=== PATIENT | male | born 1965 | race Caucasian/White ===

== ENCOUNTER 2018-04-09 16:47 | Outpatient (REF) | payer BC, SELFPAY ==
[2018-04-09 18:28] LABS: HGB 15.6 g/dL (13.5-17.5)
[2018-04-09 18:53] LABS: TSH (W/Ref FT4) 1.91 uIU/mL (0.358-3.74)
[2018-04-12 16:22] LABS: Testosterone, Free 7.51 ng/dL (4.06-15.6); Testosterone, Total 289 ng/dL (240-950)
== END 2018-04-09 17:07 ==
LOC: NCHCN 16:47
PROVIDERS: Referring Provider Family Medicine; Visit Provider Family Medicine
DX: R53.83 Other fatigue (principal)
CPT/HCPCS: 84402; 84403; 83735; 84443; 85014; 85018

== ENCOUNTER 2018-05-21 16:58 | Outpatient (REF) | payer BC, SELFPAY ==
[2018-05-23 15:13] LABS: Chlamydia Result Negative; GC Result Negative; Specimen Description URINE
== END 2018-05-21 17:18 ==
LOC: NCHCN 16:58
PROVIDERS: PCP Family Medicine; Visit Provider Family Medicine
DX: Z20.9 Contact with and (suspected) exposure to unspecified communicable disease (principal); Z11.3 Encounter for screening for infections with a predominantly sexual mode of transmission
CPT/HCPCS: 87491; 87591

== ENCOUNTER 2018-05-22 09:45 | Outpatient (CLI) | payer BC, SELFPAY ==
[2018-05-23 10:55] LABS: Syphilis Serology (RPR) Negative (Negative)
[2018-05-23 11:39] LABS: HIV-1/2 Ag & Ab Screen Negative (NEGAT); Hepatitis B Surface Ag Negative (NEGAT)
== END 2018-05-22 10:05 ==
PROVIDERS: PCP Family Medicine; Visit Provider Family Medicine
DX: Z20.9 Contact with and (suspected) exposure to unspecified communicable disease (principal); Z11.59 Encounter for screening for other viral diseases; Z11.4 Encounter for screening for human immunodeficiency virus [HIV]
CPT/HCPCS: 36415; 87340; 87389; 86592

== ENCOUNTER 2018-06-27 08:54 | Outpatient (REF) | payer BC, SELFPAY ==
[2018-06-27 13:51] LABS: Cholesterol 213 mg/dL (50-200); HDL Cholesterol 53 mg/dL (40-60); LDL CHOLESTEROL 137 mg/dL (<100); Triglyceride 102 mg/dL (30-150)
== END 2018-06-27 09:14 ==
LOC: NCHCN 08:54
PROVIDERS: PCP Family Medicine; Visit Provider Family Medicine
DX: Z00.00 Encounter for general adult medical examination without abnormal findings (principal); E66.9 Obesity, unspecified
CPT/HCPCS: 80061; 83721

== ENCOUNTER 2019-02-24 16:33 | Outpatient (CLI) | payer BC, SELFPAY ==
--- NOTE | 2019-02-24 12:12 | DI.RAD_ITS ---
SYMPTOMS/DIAGNOSIS: SHOULDER PAIN, M25.519 LEFT SHOULDER: Five views were obtained. There are moderate hypertrophic degenerative changes of the acromioclavicular and glenohumeral joints. The cartilaginous joint space of the glenohumeral joint appears fairly well maintained. No other significant bony or soft tissue abnormality is seen.
== END 2019-02-24 16:53 ==
PROVIDERS: PCP Family Medicine; Visit Provider Family Medicine
DX: M25.512 Pain in left shoulder (principal); M13.812 Other specified arthritis, left shoulder
CPT/HCPCS: 73030

== ENCOUNTER → 2020-08-13 01:12 | Outpatient (CLI) | payer BC, SELFPAY ==
[2020-08-18 14:20] LABS: Testosterone, Total 440 ng/dL (240-950)
[2020-08-18 14:42] LABS: Estradiol, Mass Spectrometry 33 pg/mL (10-40); Estrone 53 pg/mL (10-60)
== END ==
PROVIDERS: PCP Family Medicine; Visit Provider Family Medicine
DX: R53.83 Other fatigue (principal); N52.9 Male erectile dysfunction, unspecified
CPT/HCPCS: 36415; 84403; 82670; 82679

== ENCOUNTER 2021-07-13 08:04 | Emergency (ER) | payer OTHER, SELFPAY ==
[2021-07-13 08:11] VITALS: BP 162/111; PULSE 103; RESP 16; TEMP 36.1; O2SAT 97
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
[2021-07-13] MEDS: Acetaminophen 325 MG TAB 650 MG PO (09:08)
[2021-07-13 09:34] VITALS: BP 158/92; PULSE 91; TEMP 36.8; O2SAT 98
--- NOTE | 2021-07-13 17:54 | NUR.NOTE ---
Nursing Note:Patient called asking for prescription to be sent to [facility] in [place], the [facility] in [facility] is closed. Paula Martinez, did this. Patient notified. Lilly miller
== END 2021-07-13 09:42 | disposition home or self-care (01) ==
PROVIDERS: Emergency Provider Physician Assistant; PCP Family Medicine
DX: M54.2 Cervicalgia (principal); V40.5XXA Car driver injured in collision with pedestrian or animal in traffic accident, initial encounter
CPT/HCPCS: 99284; 72125; 99283

== ENCOUNTER 2022-02-10 12:12 | Emergency (ER) | payer BC, SELFPAY ==
[2022-02-10 12:41] VITALS: BP 132/97; PULSE 99; RESP 14; TEMP 36.6; O2SAT 98
--- NOTE | 2022-02-10 12:45 | RT.EKG_ITS ---
APPROVED REPORT Exam: Resting ECG Reason for Exam: chest congestion Patient Location: E HR:86 bpm ECG Measurements Heart Rate 86 AXIS OR 148 P 33 QRSd 85 QRS 21 QT 367 T 51 QTc 440 Conclusion Sinus rhythm...normal P axis, V-rate 60- 99 sinus rhythm, normal axis, normal intervals, non ischemic
--- NOTE | 2022-02-10 12:50 | DI.RAD_ITS ---
Exam(s) XR PORTABLE CHEST AP EXAM: XR PORTABLE CHEST AP CLINICAL HISTORY: covid, chest congestion TECHNIQUE: 2D digital imaging was performed of the chest. One image was obtained. An AP view was ob tained. COMPARISON: CR CHEST 2 VIEWS PA,LAT from 06/14/2016 FINDINGS: MEDIASTINUM: Normal. HEART: Normal. PULMONARY VASCULATURE: Normal. LUNGS: Clear. PLEURAL SPACE: No pleural effusion or pneumothorax. BONE:Within normal limits for the patient's age. OTHER FINDINGS:Normal. IMPRESSION: No acute pulmonary findings. DATA REPOSITORY: RADIATION DOSE DELIVERED:
--- NOTE | 2022-02-10 13:10 | ED.GENADUL_ITS ---
Discharge Plan Disposition Patient Disposition: HOME Condition: Improving Discharge Details Chief Complaint: GenMedical Clinical Impression: COVID-19 Primary Care Provider: Mark Michelle ED Provider: Joel Teixeira Home Meds and New Rx's Prescriptions: No Action lorazepam 0.5 MG tablet 0.5 mg PO 1-2 hs,1q8h prn Qty: 90 0RF lamotrigine [Lamictal] 150 mg tablet 150 mg PO DAILY PRN ibuprofen 600 mg tablet 600 mg PO TID PRN fluticasone propionate [Flovent HFA] 110 mcg/actuation HFA aerosol inhaler 1 puff inhalation BID multivitamin Tablet 1 tab PO DAILY albuterol sulfate [Ventolin HFA] 8 GM HFA aerosol inhaler 2 puff Inhalation PRN PRN fluticasone propionate [Flovent HFA] 10.6 GM HFA aerosol inhaler 10.6 g Inhalation vitamin B complex [B-Complex] 1 EACH tablet 1 tab PO DAILY Glucosamine Sulf-Chondroitin 1 EACH capsule 1 cap PO DAILY magnesium oxide 400 MG capsule 400 mg PO DAILY [place] 4 tab PO DAILY Thermoburn 2 tab PO DAILY Discharge Instructions Instructions: Viral Syndrome (ED) Additional Instructions: Please follow-up with your primary physician. Please return to the emergency part he develop any worsening symptoms such as chest pain shortness of breath or other abnormal symptoms. Care management will be reaching out and we will have [facility] human services reach out to help you seek outpatient services as needed. Medical Decision Making 56-year-old male history of psychogenic seizure, recently diagnosed with COVID presents with generalized fatigue chest congestion and lightheadedness. Has endorses that his seizure activity has increased. Patient is alert and oriented nontoxic no respiratory distress hemodynamically stable, ambulatory without assistance no focal neurologic deficits. Patient did have a convulsive episode during triage in which she was talking to us the entire time and said the word seizure this is brief in nature and involved contraction of his neck muscles and grimacing, no postictal phase patient was able to interact normally right after this event. Likely symptomatic COVID-19. Low suspicion for worsening neurologic process. Low suspicion for ACS PE or dehydration. Will treat symptomatically with analgesia and anti-inflammatory. Will obtain EKG and chest x-ray. Likely discharge home with home care instructions and return precautions 14: 26 patient resting comfortably no acute distress. EKG and x-ray clear. Patient endorses that he has close follow-up as an outpatient. Has been seen by neurology in the past who have cleared him from a neurologic standpoint with regards to seizure activity. Given home care instructions and return precautions given. His girlfriend will be called to pick him up. HPI General Date/Time Provider Initiated Documentation: 02/10/22 12:50 . HPI Narrative: 56-year-old male recently diagnosed with COVID-19 over the past 3 days, history of psychogenic seizure, presents referred in after phone conversation with primary care nursing staff, has been endorsing fatigue body aches and chest congestion over the past several days. Endorses that his psychogenic seizure frequency has increased. Denies syncope, or injuries. Has been taking medications as prescribed. Related Data Home Medications Medication Instructions Recorded Confirmed albuterol sulfate 90 mcg/actuation 2 puff inhalation PRN PRN 09/24/12 02/10/22 aerosol inhaler (Ventolin HFA) fluticasone propionate 44 10.6 g inhalation 02/14/13 09/06/15 mcg/actuation HFA aerosol inhaler (Flovent HFA) glucosamine sulfate dipotassium Cl 1 cap PO DAILY 09/06/15 02/10/22 500 mg-chondroitin 400 mg capsule (Glucosamine Sulfate 2 KCL-Chondroitin) magnesium oxide 400 mg PO DAILY 09/06/15 02/10/22 vitamin B complex (B-Complex 1 tab PO DAILY 09/06/15 02/10/22 tablet) lorazepam 0.5 mg tablet 0.5 mg PO 1-2 hs,1q8h prn ##90 06/18/17 02/10/22 [place] 4 tab PO DAILY 07/13/21 02/10/22 Thermoburn 2 tab PO DAILY 07/13/21 02/10/22 lamotrigine 150 mg tablet 150 mg PO DAILY PRN 08/03/21 02/10/22 (Lamictal) fluticasone propionate 110 1 puff inhalation BID 01/13/22 02/10/22 mcg/actuation HFA aerosol inhaler (Flovent HFA) ibuprofen 600 mg tablet 600 mg PO TID PRN 01/13/22 02/10/22 multivitamin 1 tab PO DAILY 01/13/22 02/10/22 Previous Rx's Medication Instructions Recorded lorazepam 0.5 mg tablet 0.5 mg PO 1-2 hs,1q8h prn ##90 06/18/17 Allergies Allergy/AdvReac Type Severity Reaction Status Date / Time acetaminophen [From Percocet] AdvReac Mild Nausea Verified 02/10/22 12:49 oxycodone [From Percocet] AdvReac Mild Nausea Verified 02/10/22 12:49 pollen extracts AdvReac Mild Headache Verified 02/10/22 12:49 General Stated Complaint: GenMedical CHICO: 3 Review of Systems Narrative: Review of Systems Constitutional: Fatigue Eyes: negative ENT: negative Cardiovascular: negative Respiratory: Chest congestion Gastrointestinal: negative : negative Musculoskeletal: Body aches Skin: negative Neurologic: negative Psych: negative PFSH All Active Problems (Updated 02/10/22 @ 14:30 by Joel Teixeira MD) COVID-19 (Acute) Erectile dysfunction (Acute) Cervicalgia (Acute) Medical History (Updated 02/10/22 @ 14:30 by Joel Teixeira MD) Allergic rhinitis Asthma Elevated blood pressure reading Generalized anxiety disorder GERD (gastroesophageal reflux disease) Headache Hemangioma Herpes zoster History of ETOH abuse Meniscus, medial, derangement Pseudoseizures Right rotator cuff tear Shoulder impingement syndrome Skin tag Tremor Surgical History (Updated 01/13/22 @ 13:04 by Teressa Coats RN) H/O arthroscopy of left knee H/O arthroscopy of right knee History of laryngoscopy Family History (Updated 01/13/22 @ 13:06 by Teressa Coats RN) Father Alcohol use disorder Heart disease Mother Cancer Social History Smoking/Tobacco Use Status: Former Tobacco Use Smoking risk assessment performed?: Yes Alcohol Intake: former Drug use: Never Do you feel safe at home: Yes Do you feel safe in your relationship?: Yes Exam Narrative Exam Narrative: Physical Examination General: alert, awake, cooperative, resting comfortably, no acute distress HEENT: normocephalic, atraumatic; PERRL, EOM intact, conjunctiva normal; no nasal discharge; moist mucous membranes, oral and pharyngeal mucosa normal, tolerating secretions Neck: supple, trachea midline; full ROM Chest: normal to inspection Respiratory: normal respiratory effort, speaking in full sentences, clear to auscultation, no wheezing, rales or rhonchi Cardiac: regular rate, regular rhythm, S1S2 intact, no murmurs rubs or gallops GI: abdomen soft, non-tender, non-distended; no palpable mass or hepatosplenomegaly Skin: no lesions, rashes or trauma appreciated Neuro: AAOx3, normal speech, moving all extremities Extremities: No peripheral edema, no signs of trauma Psych: Appropriate mood and affect Course Vital Signs Vital signs: Vital Signs Temperature 36.6 C 02/10/22 12:41 Pulse 99 H 02/10/22 12:41 Respiratory Rate 14 02/10/22 12:41 Blood Pressure 132/97 H 02/10/22 12:41 Pulse Oximetry 98 02/10/22 12:41 Temperature 36.6 C 02/10/22 12:41 Temperature Source Temporal Artery Scan 02/10/22 12:41 Pulse 99 H 02/10/22 12:41 Respiratory Rate 14 02/10/22 12:41 Respiratory Effort Non-Labored 02/10/22 12:52 Respiratory Depth Normal 02/10/22 12:52 Respiratory Pattern Normal 02/10/22 12:52 Blood Pressure 132/97 H 02/10/22 12:41 Blood Pressure Position Supine 02/10/22 12:41 Pulse Oximetry 98 02/10/22 12:41 Oxygen Delivery Method Room Air 02/10/22 12:41 Oxygen Flow Rate 0 02/10/22 12:41
[2022-02-10] MEDS: LORazepam 1 MG TAB PO (13:25)
[2022-02-10] MEDS: Dexamethasone 10 MG/ML VIAL IM (13:26)
[2022-02-10] MEDS: Ketorolac 15 MG/ML VIAL IM (13:26)
[2022-02-10 14:41] VITALS: BP 125/81; PULSE 90; RESP 18; TEMP 37; O2SAT 97
--- NOTE | 2022-02-10 17:47 | NUR.NOTE ---
Nursing Note: Pt info faxed to pcp for follow up [facility] for mental health & emotional support. Liza, ED
--- NOTE | 2022-02-13 12:01 | PDOC.ERCMACT ---
- If Service Date Differs Date of service: 02/13/22 Time of Service: 12:01 Care Management Activity Note Jg is seen in the ED for generalized fatigue, chest congestion and lightheadedness. At the request of ED provider, NEYDA coordinates a referral to [facility] to assist Jg in obtaining an appointment with a therapist for generalized anxiety disorder. He has BCBS for insurance.
== END 2022-02-10 18:03 | disposition home or self-care (01) ==
PROVIDERS: Emergency Provider Emergency Medicine; PCP Family Medicine
DX: U07.1 COVID-19 (principal); J45.909 Unspecified asthma, uncomplicated; Z79.51 Long term (current) use of inhaled steroids; Z87.891 Personal history of nicotine dependence
CPT/HCPCS: 93005; 96372; 99284; 71045; 93010; J1100; J1885

== ENCOUNTER 2022-04-21 15:12 | Outpatient (REF) | payer BC, SELFPAY ==
[2022-04-21 15:43] LABS: Abs Immature Grans 0.02 10^3/uL (0.0-0.06); Absolute Basophil Count 0.12 10^3/uL (0.0-0.2); Absolute Lymphocyte Count 2.51 10^3/uL (1.2-3.4); Absolute Monocyte Count 0.86 10^3/uL (0.1-0.8); Absolute Neutrophil Count 3.46 10^3/uL (1.2-6.7); Basophils % 1.7; ESR 17 mm/hr (0-20); Eosinophils % 2.8; HCT 46.3 % (40.0-50.0); HGB 15.8 g/dL (13.5-17.5); Immature Grans % 0.3; MCH 31.3 pg (27.0-33.0); MCHC 34.1 % (32.0-36.0); MCV 92 fL (80-95); MPV 9.6 fL (8.0-11.0); Neutrophils % 48.2; Platelet Count 325 10^3/uL (130-400); RBC 5.05 10^6/uL (4.36-5.78); RDW 13.1 % (11.8-14.1); RDW-SD 44.5 fL; WBC 7.17 10^3/uL (4.4-10.8)
[2022-04-21 17:14] LABS: Anion Gap 7.6 mmol/L (3-11); BUN 19 mg/dL (7-18); CO2 28.4 mmol/L (21.0-32.0); CREATININE 0.8 mg/dL (0.70-1.30); Calcium 8.8 mg/dL (8.5-10.1); Calculated LDL 115 mg/dL (<100); Chloride 105 mmol/L (98-107); Cholesterol 188 mg/dL (<200); Estimated GFR 103.87 (mL/min/1.73m2); Glucose 90 mg/dL (74-106); HDL Cholesterol 49 mg/dL (40-60); Potassium 4.3 mmol/L (3.5-5.1); Sodium 141 mmol/L (136-145); Triglyceride 120 mg/dL (<150)
== END 2022-04-21 15:13 | disposition home or self-care (01) ==
LOC: NCHCN 15:12
PROVIDERS: PCP Family Medicine; Visit Provider Family Medicine
DX: R03.0 Elevated blood-pressure reading, without diagnosis of hypertension (principal); H34.8120 Central retinal vein occlusion, left eye, with macular edema
CPT/HCPCS: 80048; 80061; 85652; 85025

== ENCOUNTER 2022-11-02 20:20 | Emergency (ER) | payer BC, SELFPAY ==
[2022-11-02 20:24] VITALS: BP 148/84; PULSE 96; RESP 18; TEMP 37.1; O2SAT 95
--- NOTE | 2022-11-02 20:34 | ED.GENADUL_ITS ---
Discharge Plan Disposition Patient Disposition: Home Discharge Details Clinical Impression: Insect bite Primary Care Provider: Mark Michelle ED Provider: Jj Bolden Home Meds and New Rx's Prescriptions: Continued lorazepam 0.5 MG tablet 0.5 mg PO 1-2 hs,1q8h prn Qty: 90 0RF lamotrigine [Lamictal] 150 mg tablet 150 mg PO DAILY PRN ibuprofen 600 mg tablet 600 mg PO TID PRN fluticasone propionate [Flovent HFA] 110 mcg/actuation HFA aerosol inhaler 1 puff inhalation BID multivitamin Tablet 1 tab PO DAILY albuterol sulfate [Ventolin HFA] 8 GM HFA aerosol inhaler 2 puff Inhalation PRN PRN fluticasone propionate [Flovent HFA] 10.6 GM HFA aerosol inhaler 10.6 g Inhalation vitamin B complex [B-Complex] 1 EACH tablet 1 tab PO DAILY Glucosamine Sulf-Chondroitin 1 EACH capsule 1 cap PO DAILY magnesium oxide 400 MG capsule 400 mg PO DAILY [place] 4 tab PO DAILY Thermoburn 2 tab PO DAILY Discharge Instructions Instructions: Insect Bite or Sting (ED) Additional Instructions: Based on physical exam it is unclear if you were bitten by a tick or another insect. We have given you a prophylactic dose that reduces the chance of Lyme disease if this was an attached or engorged tick. Otherwise if area starts to become itchy you may use [id number] Benadryl cream or pills. Watch the area for signs of infection and return immediately if these occur otherwise if you have any new or significant worsening of your condition, difficulty breathing or swallowing or any other concerns return to the emergency department for reassessment. Otherwise follow-up with primary care provider as needed. Referrals: Mark Michelle [Primary Care Provider] - Medical Decision Making Patient reports that today he noticed some ticks crawling on him and he removed them. Then later in the evening he felt the back of his neck and and felt like there was a tick that was attached or embedded and flung it off. He did not see it but did noticed some bleeding after that was removed. Patient denies all other symptoms. Physical exam shows a area consistent with tick or insect bite to the posterior neck. Exam is otherwise unremarkable. Given potential for embedded tick and patient stating unknown time of attachment we will give patient single dose of doxycycline and have patient otherwise monitor symptoms. After discussion of diagnosis and plan of care patient has no further needs, questions, or concerns and states clear understanding to return to the emergency department for any worsening symptoms. This documentation was generated using [employer] dictation system, please disregard any oddities of phrase or misspellings. HPI General Mode of arrival: ambulatory . Date/Time Provider Initiated Documentation: 11/02/22 20:34 . Limitations to Documentation: no limitations . Information obtained by: patient and RN notes reviewed . History of Present Illness 57 year old M presents to the emergency department with the chief complaint of tick, Patient started experiencing this unknown Patient notes no other symptoms.. Patient did receive the following treatments prior to arrival, none Related Data Home Medications Medication Instructions Recorded Confirmed albuterol sulfate 90 mcg/actuation 2 puff inhalation PRN PRN 09/24/12 02/10/22 aerosol inhaler (Ventolin HFA) fluticasone propionate 44 10.6 g inhalation 02/14/13 09/06/15 mcg/actuation HFA aerosol inhaler (Flovent HFA) glucosamine sulfate dipotassium Cl 1 cap PO DAILY 09/06/15 02/10/22 500 mg-chondroitin 400 mg capsule (Glucosamine Sulfate 2 KCL-Chondroitin) magnesium oxide 400 mg PO DAILY 09/06/15 02/10/22 vitamin B complex (B-Complex 1 tab PO DAILY 09/06/15 02/10/22 tablet) lorazepam 0.5 mg tablet 0.5 mg PO 1-2 hs,1q8h prn ##90 06/18/17 02/10/22 [place] 4 tab PO DAILY 07/13/21 02/10/22 Thermoburn 2 tab PO DAILY 07/13/21 02/10/22 lamotrigine 150 mg tablet 150 mg PO DAILY PRN 08/03/21 02/10/22 (Lamictal) fluticasone propionate 110 1 puff inhalation BID 01/13/22 02/10/22 mcg/actuation HFA aerosol inhaler (Flovent HFA) ibuprofen 600 mg tablet 600 mg PO TID PRN 01/13/22 02/10/22 multivitamin 1 tab PO DAILY 01/13/22 02/10/22 Previous Rx's Medication Instructions Recorded lorazepam 0.5 mg tablet 0.5 mg PO 1-2 hs,1q8h prn ##90 06/18/17 Allergies Allergy/AdvReac Type Severity Reaction Status Date / Time acetaminophen [From Percocet] AdvReac Mild Nausea Verified 11/02/22 20:30 oxycodone [From Percocet] AdvReac Mild Nausea Verified 11/02/22 20:30 pollen extracts AdvReac Mild Headache Verified 11/02/22 20:30 General Stated Complaint: InsectBite CHICO: 4 Review of Systems Constitutional Constitutional: Denies body ache(s), Denies fever(s) and Denies headache(s) ENT Ears, Nose, Mouth, and Throat: Denies headache(s) Musculoskeletal Musculoskeletal: Denies myalgias, Denies arthralgias and Denies joint swelling Integumentary/Breasts Skin/Breast: Reports as per HPI, Denies erythema and Denies rash Neurologic Neurologic: Denies headache(s) and Denies paresthesias PFSH All Active Problems COVID-19 (Acute) Insect bite (Acute) Erectile dysfunction (Acute) Cervicalgia (Acute) Medical History Allergic rhinitis Asthma Elevated blood pressure reading Generalized anxiety disorder GERD (gastroesophageal reflux disease) Headache Hemangioma Herpes zoster History of ETOH abuse Meniscus, medial, derangement Pseudoseizures Right rotator cuff tear Shoulder impingement syndrome Skin tag Tremor Surgical History H/O arthroscopy of left knee H/O arthroscopy of right knee History of laryngoscopy Family History Father Alcohol use disorder Heart disease Mother Cancer Social History Smoking/Tobacco Use Status: Former Tobacco Use Smoking risk assessment performed?: Yes Alcohol Intake: former Drug use: Never Do you feel safe at home: Yes Do you feel safe in your relationship?: Yes Exam Const General: cooperative, comfortable and no acute distress Orientation: alert, awake and oriented x3 Neck Neck: other (Insect bite) Neck images: 1. Area of insect bite and surrounding erythema Resp Effort & Inspection: normal respiratory effort and able to speak in complete sentences Skin General skin exam: erythema (Circular area with central bite omaira consistent with insect/tick bite), no fluctuance, no induration and other Rashes: no rashes Neuro General: patient alert, patient awake and patient oriented x3 Course Vital Signs Vital signs: Vital Signs Temperature 37.1 C 11/02/22 20:24 Pulse 96 H 11/02/22 20:24 Respiratory Rate 18 11/02/22 20:24 Blood Pressure 148/84 H 11/02/22 20:24 Pulse Oximetry 95 11/02/22 20:24 Temperature 37.1 C 11/02/22 20:24 Temperature Source Oral 11/02/22 20:24 Pulse 96 H 11/02/22 20:24 Respiratory Rate 18 11/02/22 20:24 Respiratory Effort Normal 11/02/22 20:28 Blood Pressure 148/84 H 11/02/22 20:24 Blood Pressure Position Standing 11/02/22 20:24 Pulse Oximetry 95 11/02/22 20:24 Oxygen Delivery Method Room Air 11/02/22 20:24 Oxygen Flow Rate 0 11/02/22 20:24 Pain Level 0 11/02/22 20:24
[2022-11-02] MEDS: Doxycycline Hyclate 100 MG CAP 200 MG PO (20:41)
== END 2022-11-02 20:47 | disposition home or self-care (01) ==
PROVIDERS: Emergency Provider Nurse Practitioner Family; PCP Family Medicine
DX: S10.96XA Insect bite of unspecified part of neck, initial encounter (principal); W57.XXXA Bitten or stung by nonvenomous insect and other nonvenomous arthropods, initial encounter
CPT/HCPCS: 99283

== ENCOUNTER 2023-01-04 16:00 | Outpatient (REF) | payer BC, SELFPAY ==
[2023-01-04 20:25] LABS: Abs Immature Grans 0.05 10^3/uL (0.0-0.06); Absolute Lymphocyte Count 0.75 10^3/uL (1.2-3.4); Basophils % 0.4; Eosinophils % 0.1; Immature Grans % 0.4; Lymphocytes % 5.5; MCH 31.3 pg (27.0-33.0); MCHC 33.3 % (32.0-36.0); MCV 94 fL (80-95); MPV 9.2 fL (8.0-11.0); Monocytes % 5.1; Neutrophils % 88.5; Platelet Count 331 10^3/uL (130-400); RDW 13.5 % (11.8-14.1); RDW-SD 46.3 fL; WBC 13.65 10^3/uL (4.4-10.8)
[2023-01-04 20:26] LABS: Absolute Basophil Count 0.05 10^3/uL (0.0-0.2); Absolute Eosinophil Count 0.01 10^3/uL (0.0-0.7); Absolute Neutrophil Count 12.08 10^3/uL (1.2-6.7)
[2023-01-04 20:42] LABS: ALT 40 U/L (16-63); AST 25 U/L (15-37); Albumin 3.5 g/dL (3.4-5.0); Alkaline Phosphatase 62 U/L (46-116); Anion Gap 6.8 mmol/L (3-11); BUN 22 mg/dL (7-18); Bilirubin, Total 0.4 mg/dL (0.2-1.0); CO2 28.2 mmol/L (21.0-32.0); CREATININE 0.8 mg/dL (0.70-1.30); Chloride 109 mmol/L (98-107); Estimated GFR 103.22 (mL/min/1.73m2); Glucose 109 mg/dL (74-106); Lipase 35 U/L (16-77); Potassium 4.9 mmol/L (3.5-5.1); Sodium 144 mmol/L (136-145); Total Protein 7.2 g/dL (6.4-8.2)
== END 2023-01-04 16:01 | disposition home or self-care (01) ==
LOC: LBN 16:00
PROVIDERS: PCP Family Medicine; Visit Provider Physician Assistant Medical
DX: R10.11 Right upper quadrant pain (principal); R19.7 Diarrhea, unspecified; R11.2 Nausea with vomiting, unspecified
CPT/HCPCS: 80053; 83690; 85025

== ENCOUNTER → 2023-04-16 18:01 | Outpatient (CLI) | payer BC, SELFPAY ==
--- NOTE | 2023-04-16 18:00 | DI.RAD_ITS ---
Exam(s) XR HAND RT COMPLETE EXAM: XR HAND RT COMPLETE CLINICAL HISTORY: PAIN IN JOINTS OF RIGHT HAND. TECHNIQUE: 2D digital imaging was performed. Three views. COMPARISON: No exams were available for comparison FINDINGS: BONES: No acute fracture is present. No bony destructive lesion is seen. JOINTS: No dislocation present. Moderate narrowing of the interphalangeal of the joints of the fing ers, greater in the distal interphalangeal joints, most prominent at the 3rd distal interphalangeal j oint where there is prominent spurring. Minimal degenerative changes elsewhere. SOFT TISSUE: Posterior swelling. IMPRESSION: Degenerative changes, greatest at the 3rd distal interphalangeal joint. DATA REPOSITORY: RADIATION DOSE DELIVERED:
== END ==
PROVIDERS: PCP Family Medicine; Visit Provider Nurse Practitioner Family
DX: M19.041 Primary osteoarthritis, right hand (principal)
CPT/HCPCS: 73130

== ENCOUNTER 2023-04-16 21:51 | Outpatient (REF) | payer BC, SELFPAY ==
[2023-04-17 01:20] LABS: Abs Immature Grans 0.02 10^3/uL (0.0-0.06); Absolute Basophil Count 0.13 10^3/uL (0.0-0.2); Absolute Eosinophil Count 0.24 10^3/uL (0.0-0.7); Absolute Lymphocyte Count 2.55 10^3/uL (1.2-3.4); Absolute Monocyte Count 0.84 10^3/uL (0.1-0.8); Absolute Neutrophil Count 4.95 10^3/uL (1.2-6.7); Basophils % 1.5; Eosinophils % 2.7; HCT 45.8 % (40.0-50.0); HGB 15.9 g/dL (13.5-17.5); Immature Grans % 0.2; Lymphocytes % 29.2; MCH 32.1 pg (27.0-33.0); MCHC 34.7 % (32.0-36.0); MCV 92 fL (80-95); MPV 9.9 fL (8.0-11.0); Monocytes % 9.6; Neutrophils % 56.8; Platelet Count 352 10^3/uL (130-400); RBC 4.96 10^6/uL (4.36-5.78); RDW 13.2 % (11.8-14.1); RDW-SD 44.8 fL; WBC 8.73 10^3/uL (4.4-10.8)
[2023-04-17 01:30] LABS: Uric Acid 5.9 mg/dL (3.5-7.2)
[2023-04-17 10:53] LABS: ESR (LRH) 30 mm/hr
== END 2023-04-16 21:52 | disposition home or self-care (01) ==
LOC: NCHCN 21:51
PROVIDERS: PCP Family Medicine; Visit Provider Nurse Practitioner Family
DX: M25.541 Pain in joints of right hand (principal)
CPT/HCPCS: 85652; 84550; 85025

== ENCOUNTER 2024-08-29 07:30 | Emergency (ER) | payer BC, SELFPAY ==
[2024-08-29] VITALS (102 sets, daily range): BP systolic 135–205; BP diastolic 84–164; PULSE 73–136; RESP 8–30; TEMP 36.1; O2SAT 92–98
--- NOTE | 2024-08-29 07:30 | RT.EKG_ITS ---
APPROVED REPORT Exam: Resting ECG Reason for Exam: Chest pain Patient Location: E HR:92 bpm ECG Measurements Heart Rate 92 AXIS VA 164 P 28 QRSd 88 QRS 54 QT 367 T 71 QTc 455 Conclusion Sinus rhythm...normal P axis, V-rate 60- 99
[2024-08-29 08:02] LABS: Abs Immature Grans 0.02 10^3/uL (0.0-0.06); Absolute Basophil Count 0.12 10^3/uL (0.0-0.2); Absolute Lymphocyte Count 1.92 10^3/uL (1.2-3.4); Absolute Monocyte Count 0.64 10^3/uL (0.1-0.8); Absolute Neutrophil Count 3.91 10^3/uL (1.2-6.7); Basophils % 1.8 %; Eosinophils % 2.9 %; HGB 15.5 g/dL (13.5-17.5); Immature Grans % 0.3 %; Lymphocytes % 28.2 %; MCH 31.4 pg (27.0-33.0); MCHC 33.7 % (32.0-36.0); MCV 93 fL (80-95); MPV 8.6 fL (8.0-11.0); Monocytes % 9.4 %; Neutrophils % 57.4 %; Platelet Count 301 10^3/uL (130-400); RBC 4.94 10^6/uL (4.36-5.78); RDW 13.1 % (11.8-14.1); RDW-SD 44.6 fL; WBC 6.81 10^3/uL (4.4-10.8)
[2024-08-29 08:19] LABS: ALT 43 U/L (16-63); AST 23 U/L (15-37); Albumin 3.5 g/dL (3.4-5.0); Alkaline Phosphatase 61 U/L (46-116); Anion Gap 5.3 mmol/L (3-11); BUN 23 mg/dL (7-18); Bilirubin, Total 0.41 mg/dL (0.2-1.0); CO2 29.7 mmol/L (21.0-32.0); CREATININE 0.8 mg/dL (0.70-1.30); Calcium 8.8 mg/dL (8.5-10.1); Chloride 107 mmol/L (98-107); Estimated GFR 101.95 (mL/min/1.73m2); Glucose 119 mg/dL (74-106); Magnesium 1.9 mg/dL (1.8-2.4); Sodium 142 mmol/L (136-145); Total Protein 7.6 g/dL (6.4-8.2); Troponin I 5 ng/L (<or=76)
--- NOTE | 2024-08-29 08:30 | DI.MRI_ITS ---
Exam(s) MR BRAIN WO EXAM: MR BRAIN WO CLINICAL HISTORY: vertigo, positive HINTS test TECHNIQUE: Multiplanar multisequence MRI of the brain was performed. COMPARISON: No exams were available for comparison FINDINGS: CEREBRAL PARENCHYMA: There is no evidence of intracranial hemorrhage, mass effect, or shift of midline structures. There are no extra-axial fluid collections. Ventricles are not enlarged or shifted. No evidence of cerebe llar tonsillar ectopia. There is no significant focal signal abnormality in the cerebellar hemispheres nor within the buddy, m idbrain, and thalami. There are few tiny nonspecific FLAIR bright foci of signal abnormality with average size 2 mm in the bilateral Phyllis ventricular white matter, not associated with hemorrhage, surrounding edema, nor restr icted diffusion. There is no significant focal signal abnormality evident on diffusion imaging to suggest acute ischem ic event. PITUITARY GLAND: No mass nor parasellar abnormality. No obvious abnormality in the cavernous sinuses. FLOW VOIDS: The expected flow void are noted. No evidence of obvious aneurysm nor obvious vascular ma lformation. Right vertebral artery is dominant and is the main contributor to the formation of the ba silar artery. PARANASAL SINUSES: The visualized paranasal sinuses appear unremarkable. No obvious finding ORBITS: No obvious findings. IMPRESSION: There are a few small tiny nonspecific foci of white matter signal abnormality as described above. T hese are nonspecific findings. No evidence of acute ischemic event. No acute intracranial findings on this noninfused MRI scan of the brain. Report called by myself to ER 08/29/2024 at 11:40 a.m. DATA REPOSITORY:
[2024-08-29] MEDS: Meclizine 25 MG TAB PO (08:31)
[2024-08-29] MEDS: LORazepam 2 MG/ML VIAL 0.5 MG IVP (08:32)
[2024-08-29] MEDS: Normal Saline Flush 10 ML SYR IVP ×2 (08:33→10:09)
--- NOTE | 2024-08-29 08:36 | ED.GENADUL_ITS ---
Discharge Plan Disposition Patient Disposition: Home Condition: Stable Discharge Details Clinical Impression: Vertigo, Hypertension, Anxiety, Chest discomfort Primary Care Provider: Mark Michelle ED Provider: Jacobo Arvizu Home Meds and New Rx's Prescriptions: New meclizine 25 mg tablet 25 mg PO BID PRNQty: 20 0RF lorazepam 1 mg tablet 1 mg PO DAILY PRN (Reason: severe anxiety) Qty: 5 0RF Continued lorazepam 0.5 MG tablet 0.5 mg PO 1-2 hs,1q8h prn Qty: 90 0RF lamotrigine [Lamictal] 150 mg tablet 150 mg PO DAILY PRN Patient Comments: pt states now taking 50mg ibuprofen 600 mg tablet 600 mg PO TID PRN fluticasone propionate [Flovent HFA] 110 mcg/actuation HFA aerosol inhaler 1 puff inhalation BID multivitamin Tablet 1 tab PO DAILY albuterol sulfate [Ventolin HFA] 8 GM HFA aerosol inhaler 2 puff Inhalation PRN PRN fluticasone propionate [Flovent HFA] 10.6 GM HFA aerosol inhaler 10.6 g Inhalation PRN Glucosamine Sulf-Chondroitin 1 EACH capsule 1 cap PO DAILY magnesium oxide 400 MG capsule 400 mg PO DAILY omeprazole 40 mg capsule,delayed release(DR/EC) 40 mg PO DAILY Patient Comments: TAKE ONE CAPSULE BY MOUTH EVERY DAY Discharge Instructions Instructions: Vestibular Exercises, Chest Pain, Adult ED, Vertigo ED Additional Instructions: Please follow-up with your primary care physician. Call today. Return to the emergency department immediately for any worsening or new concerning symptoms. Stand Alone Forms: Work Release Referrals: Mark Michelle [Primary Care Provider] - Discharge Data Discharge Date/Time-TO BE ENTERED AT DEPARTURE: 08/29/24 13:45 [facility] General Date/Time Provider Initiated Documentation: 08/29/24 07:40 . Information obtained by: patient . HPI Narrative: HISTORY OF PRESENT ILLNESS The patient is a 59-year-old male presenting with chief complaint of dizziness with associated chest pain, and seizures. He reports vertigo with a spinning sensation when turning his head, more severe to the left. Symptoms began last night, with associated nausea and vomiting. He has not eaten today. He has a headache in the temporal region radiating to the frontal lobe, attributed to stress and his seizure disorder. Abdominal pain occurs only with overeating. This morning, he experienced chest pain, worsened by decaffeinated coffee and a muffin, with labored breathing and increased respiratory rate. No recent travel, rashes, swelling, or lower extremity pain. 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 He uses lorazepam as needed but has not taken it today. Meditation and outdoor activities help manage his anxiety. Related Data Home Medications ?Medication ?Instructions ?Recorded ?Confirmed albuterol sulfate 90 mcg/actuation 2 puff inhalation PRN PRN 09/24/12 08/29/24 aerosol inhaler (Ventolin HFA) fluticasone propionate 44 10.6 g inhalation PRN 02/14/13 08/29/24 mcg/actuation HFA aerosol inhaler (Flovent HFA) glucosamine sulfate dipotassium Cl 1 cap PO DAILY 09/06/15 08/29/24 500 mg-chondroitin 400 mg capsule (Glucosamine Sulfate 2 KCL-Chondroitin) magnesium oxide 400 mg PO DAILY 09/06/15 08/29/24 lorazepam 0.5 mg tablet 0.5 mg PO 1-2 hs,1q8h prn ##90 06/18/17 08/29/24 lamotrigine 150 mg tablet 150 mg PO DAILY PRN 08/03/21 08/29/24 (Lamictal) fluticasone propionate 110 1 puff inhalation BID 01/13/22 08/29/24 mcg/actuation HFA aerosol inhaler (Flovent HFA) ibuprofen 600 mg tablet 600 mg PO TID PRN 01/13/22 08/29/24 multivitamin 1 tab PO DAILY 01/13/22 08/29/24 lorazepam 1 mg tablet 1 mg PO DAILY PRN severe anxiety 08/29/24 #5 tabs meclizine 25 mg tablet 25 mg PO BID PRN #20 tabs 08/29/24 omeprazole 40 mg capsule,delayed 40 mg PO DAILY 08/29/24 08/29/24 release Previous Rx's ?Medication ?Instructions ?Recorded lorazepam 0.5 mg tablet 0.5 mg PO 1-2 hs,1q8h prn ##90 06/18/17 lorazepam 1 mg tablet 1 mg PO DAILY PRN severe anxiety 08/29/24 #5 tabs meclizine 25 mg tablet 25 mg PO BID PRN #20 tabs 08/29/24 Allergies Allergy/AdvReac Type Severity Reaction Status Date / Time acetaminophen (From Percocet) AdvReac Mild Other (See Verified 08/29/24 07:46 Comment) oxycodone (From Percocet) AdvReac Mild Nausea Verified 08/29/24 07:46 pollen extracts AdvReac Mild Headache Verified 08/29/24 07:46 General Stated Complaint: Chest Pain CHICO: 2 Review of Systems Narrative: REVIEW OF SYSTEMS Positive for headache, nausea, and vomiting. Negative for rash, swelling, or lower extremity pain. Exam Narrative Exam Narrative: PHYSICAL EXAM General Appearance: Lying supine with eyes closed. Vital signs: BP 166/97, HR 92 bpm. Saturating 98% on room air with respiratory rate of 15. Temperature 36.1. HEENT: Pupils equal, round, and reactive. Tympanic membranes and external ear canals normal bilaterally. Oral exam performed. Respiratory: Lungs clear. Cardiovascular: Heart regular rate and rhythm, no murmurs. Gastrointestinal: Abdomen nontender and nondistended. 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 Extremities: No leg swelling or calf tenderness. Neurological: Negative Romberg, no dysdiadochokinesia, lower extremity strength 5/5. Upper extremity strength 5/5. Distal sensation intact. Horizontal nystagmus on right gaze. Normal head impulse test. No vertical skew. Psych: Anxious. Course Vital Signs Vital signs: Vital Signs Temperature 36.1 C L 08/29/24 07:36 Pulse 94 H 08/29/24 07:36 Respiratory Rate 15 08/29/24 07:36 Blood Pressure 166/97 H 08/29/24 07:36 Pulse Oximetry 98 08/29/24 07:36 Temperature 36.1 C L 08/29/24 07:36 Temperature Source Axillary 08/29/24 07:36 Pulse 88 08/29/24 08:31 Pulse 87 08/29/24 08:31 Respiratory Rate 15 08/29/24 08:31 Respiratory Effort Normal, Non-Labored 08/29/24 08:01 Respiratory Depth Normal 08/29/24 08:01 Respiratory Pattern Normal 08/29/24 08:01 Blood Pressure 147/101 H 08/29/24 08:31 Blood Pressure Mean 117 08/29/24 08:31 Blood Pressure Position Sitting 08/29/24 07:36 Pulse Oximetry 96 08/29/24 08:31 Oxygen Delivery Method Room Air 08/29/24 07:36 Oxygen Flow Rate 0 08/29/24 07:36 Pain Level 3 08/29/24 07:36 Lab/Test Results Lab/Test Results: Laboratory Tests Range/Units 08/29/24 07:55 WBC (4.4-10.8) 10^3/uL 6.81 RBC (4.36-5.78) 10^6/uL 4.94 Hgb (13.5-17.5) g/dL 15.5 Hct (40.0-50.0) % 46.0 MCV (80-95) fL 93 MCH (27.0-33.0) pg 31.4 MCHC (32.0-36.0) % 33.7 RDW (11.8-14.1) % 13.1 Plt Count (130-400) 10^3/uL 301 MPV (8.0-11.0) fL 8.6 Immature Gran % % 0.3 Neutrophils % % 57.4 Lymphocytes % % 28.2 Monocytes % % 9.4 Eosinophils % % 2.9 Basophils % % 1.8 Nucleated RBC % (0.0-0.3) % 0.0 Absolute Neutrophils (1.2-6.7) 10^3/uL 3.91 Absolute Lymphocytes (1.2-3.4) 10^3/uL 1.92 Absolute Monocytes (0.1-0.8) 10^3/uL 0.64 Absolute Eosinophils (0.0-0.7) 10^3/uL 0.20 Absolute Basophils (0.0-0.2) 10^3/uL 0.12 Sodium (136-145) mmol/L 142 Potassium (3.5-5.1) mmol/L 4.0 Chloride (98-107) mmol/L 107 Carbon Dioxide (21.0-32.0) mmol/L 29.7 Anion Gap (3-11) mmol/L 5.3 BUN (7-18) mg/dL 23 H Creatinine (0.70-1.30) mg/dL 0.8 Est GFR (CKD-EPI 2020) (mL/min/1.73m2) 101.95 Glucose (74-106) mg/dL 119 H Calcium (8.5-10.1) mg/dL 8.8 Magnesium (1.8-2.4) mg/dL 1.9 Total Bilirubin (0.2-1.0) mg/dL 0.41 AST (15-37) U/L 23 ALT (16-63) U/L 43 Alkaline Phosphatase (46-116) U/L 61 Troponin I (<or=76) ng/L 5 Total Protein (6.4-8.2) g/dL 7.6 Albumin (3.4-5.0) g/dL 3.5 Medical Decision Making ASSESSMENT AND PLAN Initial Assessment: The patient is a 59-year-old male with anxiety and psychogenic non-epileptic seizures presenting with new onset dizziness and chest pain. Differential Diagnosis: - Vertigo: Consider central etiology including posterior CVA given + HINTS. Plan to obtain MRI. Consider peripheral etiology and will treat with Antivert. - Acute coronary syndrome (ACS): Considered due to chest pain, though atypical presentation. EKG nondiagnostic. Plan: Troponin test, 1-hour delta troponin, reassess. ED Course: - HINTS exam performed: Preserved vestibular ocular reflex, no skew deviation, horizontal nystagmus on right gaze. - EKG performed and reviewed by me: Sinus rhythm, 92 bpm, normal axis, no STEMI, nondiagnostic. - Lorazepam 0.5 mg IV administered for severe anxiety. - Vital signs reviewed: BP 166/97 on arrival, saturating well, no respiratory distress. - Past medical record reviewed: CT of the head from 06/15/2016 showed no acute abnormality, no intracranial mass. - 1255 -- MRI brain interpreted by radiology: There are a few small tiny nonspecific foci of white matter signal abnormality as described above. These are nonspecific findings. No evidence of acute ischemic event. No acute intracranial findings on this noninfused MRI scan of the brain. - Labs reviewed and nondiagnostic. Initial troponin, 1 hour and 3-hour troponin negative. -All results were discussed with the patient. Usual and customary discharge instructions were reviewed. - Will prescribe short course of lorazepam for anxiety - patient requesting. Patient was instructed that he would need to follow-up with his primary care physician should he need additional treatment. Final Assessment: The patient presents with new onset dizziness and chest pain. Suspected benign positional vertigo. Patient also with chest discomfort. Severe anxiety noted, likely contributing to symptoms. Hypertension observed on arrival. Clinical Impression: - Benign positional vertigo - Acute coronary syndrome (ACS) - Severe anxiety - Hypertension Disposition: Plan for discharge with close outpatient follow-up. MDM Components Evaluation: - Number of Differential Diagnoses or Management Options: Benign positional vertigo, Acute coronary syndrome (ACS) - Amount and Complexity of Data Reviewed: HINTS exam, EKG, past CT of the head, vital signs - Risk of Complication and Morbidity or Mortality: Potential for posterior circulation cerebrovascular syndrome, ACS, severe anxiety contributing to symptoms. This document was written with the assistance of CARLENE Jones. The patient consented to its use. Quality:SDOH Health Related Social Needs: No Data to Display PFSH All Active Problems (Updated 08/29/24 @ 12:59 by Jacobo Arvizu MD) Chest discomfort (Acute) Anxiety (Chronic) Hypertension (Chronic) Vertigo (Acute) COVID-19 (Acute) Erectile dysfunction (Acute) Cervicalgia (Acute) Medical History PTSD (post-traumatic stress disorder) Somatoform disorder History of ETOH abuse Asthma Generalized anxiety disorder Herpes zoster GERD (gastroesophageal reflux disease) Allergic rhinitis Hemangioma Headache Pseudoseizures Skin tag Right rotator cuff tear Elevated blood pressure reading Meniscus, medial, derangement Shoulder impingement syndrome Tremor Surgical History History of laryngoscopy H/O arthroscopy of right knee H/O arthroscopy of left knee Family History Father Alcohol use disorder Heart disease Mother Cancer Social History Smoking/Tobacco Use Status: Former Tobacco Use Smoking risk assessment performed?: Yes Alcohol Intake: former Drug use: Never Do you feel safe at home: Yes Do you feel safe in your relationship?: Yes
[2024-08-29 09:26] LABS: Troponin I 4 ng/L (<or=76)
[2024-08-29] MEDS: LORazepam 2 MG/ML VIAL 1 MG IVP (10:08)
--- NOTE | 2024-08-29 12:00 | RT.EKG_ITS ---
APPROVED REPORT Exam: Resting ECG Reason for Exam: chest pain Patient Location: E HR:82 bpm ECG Measurements Heart Rate 82 AXIS WA 162 P 10 QRSd 87 QRS 8 QT 390 T 72 QTc 456 Conclusion Sinus rhythm...normal P axis, V-rate 60- 99
[2024-08-29 12:44] LABS: Troponin I 4 ng/L (<or=76)
== END 2024-08-29 13:45 | disposition home or self-care (01) ==
PROVIDERS: Emergency Provider Student in an Organized Health Care Education/Training Program; PCP Family Medicine
DX: R42 Dizziness and giddiness (principal); I10 Essential (primary) hypertension; F41.9 Anxiety disorder, unspecified; R07.9 Chest pain, unspecified
CPT/HCPCS: 36415; 80053; 93005; 96374; 96376; 99285; 70551; 83735; 84484; 85025; 93010; 99284; J2060

== ENCOUNTER 2025-01-27 09:21 | Outpatient (CLI) | payer BC, SELFPAY ==
--- NOTE | 2025-01-27 10:18 | DI.RAD_ITS ---
Exam(s) XR LUMBAR SPINE COMPLETE EXAM: XR LUMBAR SPINE COMPLETE CLINICAL HISTORY: knee pain, right M25.561, M54.50. TECHNIQUE: 2D digital imaging was performed of the lumbar spine. Five images were obtained. AP, lateral, right oblique, left oblique and L5-S1 spot views were obtained. COMPARISON: No exams were available for comparison FINDINGS: BONES: No fracture or destructive lesion. Osteophytes are seen anteriorly throughout the lumbar spine particularly at L5-S1 and L1-L2. Degenerative changes of the facets are present. DISKS: There is marked narrowing of the L5-S1 disc space. ALIGNMENT: Lumbar spinal alignment is within normal limits. No spondylolysis or spondylolisthesis. SOFT TISSUE: Atherosclerotic calcification is present. IMPRESSION: Overall, moderate degenerative changes in the lumbar spine. DATA REPOSITORY: RADIATION DOSE DELIVERED:
--- NOTE | 2025-01-27 10:18 | DI.RAD_ITS ---
Exam(s) XR HIP RT COMPLETE AP PELVIS EXAM: XR HIP RT COMPLETE AP PELVIS CLINICAL HISTORY: right hip pain, BACK PAIN, M25.561, ,54.9. TECHNIQUE: 2D digital imaging was performed of the right hip. Two images were obtained. AP pelvis and lateral right hip views were obtained. COMPARISON: No exams were available for comparison FINDINGS: BONES: No acute fracture is present. No bony destructive lesion is seen. JOINTS: No dislocation present. There is moderate narrowing of the superior joint space of the right hip. The sacroiliac joints and symphysis pubis are intact. There is an osteophyte off the inferior head of the right femur. The left hip is well maintained. SOFT TISSUE: Normal. IMPRESSION: Degenerative changes of the right hip. DATA REPOSITORY: RADIATION DOSE DELIVERED:
--- NOTE | 2025-01-27 10:18 | DI.RAD_ITS ---
Exam(s) XR KNEE RT 3V AP,LAT,JULISSA EXAM: XR KNEE RT 3V AP,LAT,JULISSA CLINICAL HISTORY: right knee pain, M25.561. TECHNIQUE: 2D digital imaging was performed of the right knee. Three views obtained. AP, lateral and PA tunnel views were obtained. COMPARISON: CR RIGHT KNEE COMPLETE from 10/02/2013 FINDINGS: BONES: No acute fracture is present. No bony destructive lesion is seen. JOINTS: The knee is normally aligned. No joint effusion is seen. SOFT TISSUE: Normal. IMPRESSION: Unremarkable radiographs of the right knee. DATA REPOSITORY: RADIATION DOSE DELIVERED:
== END 2025-01-27 09:41 ==
LOC: DI 09:22
PROVIDERS: PCP Student in an Organized Health Care Education/Training Program; Visit Provider Physician Assistant
DX: M25.561 Pain in right knee (principal); M51.362 Other intervertebral disc degeneration, lumbar region with discogenic back pain and lower extremity pain
CPT/HCPCS: 73562; 72110; 73502

== ENCOUNTER 2025-06-22 08:31 | Day surgery (SDC) | payer BC, SELFPAY ==
[2025-06-22 09:15] VITALS: BP 132/100; PULSE 84; RESP 16; TEMP 36.4; O2SAT 97
[2025-06-22] MEDS: Lactated Ringers 1,000 ML 80 ML IV (09:30)
--- NOTE | 2025-06-22 10:10 | W.ANESPRE ---
General Info Date of Service Date Performed: 06/22/25 Height: 5 ft 9 in Weight: 107.3 kg Body Mass Index (BMI): 34.9 Surgical Procedure: Operation Date: 06/22/25 09:50 Proposed Procedure Side Surgeon james Irby MD Meds Allergies and Home Medications Allergies Allergy/AdvReac Type Severity Reaction Status Date / Time acetaminophen (From Percocet) AdvReac Mild Other (See Verified 06/22/25 09:11 Comment) oxycodone (From Percocet) AdvReac Mild Nausea Verified 06/22/25 09:11 pollen extracts AdvReac Mild Headache Verified 06/22/25 09:11 Home Medication ?Medication ?Instructions ?Recorded albuterol sulfate 90 mcg/actuation 2 puff inhalation PRN PRN 09/24/12 aerosol inhaler (Ventolin HFA) fluticasone propionate 44 10.6 g inhalation PRN 02/14/13 mcg/actuation HFA aerosol inhaler (Flovent HFA) glucosamine sulfate dipotassium Cl 1 cap PO DAILY 09/06/15 500 mg-chondroitin 400 mg capsule (Glucosamine Sulfate 2 KCL-Chondroitin) magnesium oxide 400 mg PO DAILY 09/06/15 lorazepam 0.5 mg tablet 0.5 mg PO 1-2 hs,1q8h prn ##90 06/18/17 ibuprofen 600 mg tablet 600 mg PO TID PRN 01/13/22 multivitamin 1 tab PO DAILY 01/13/22 meclizine 25 mg tablet 25 mg PO BID PRN #20 tabs 08/29/24 omeprazole 40 mg capsule,delayed 40 mg PO DAILY 08/29/24 release bisacodyl 5 mg tablet,delayed 5 mg PO ONCE #4 tabs 06/03/25 release (Dulcolax (bisacodyl)) faricimab-svoa 6 mg/0.05 mL intravitreal Q4W 06/03/25 intravitreal solution (Vabysmo) polyethylene glycol 3350 17 17 g PO ONCE #238 grams 06/03/25 gram/dose oral powder Current Visit Medications: Current Medications Generic Name Dose Route Start Last Admin Trade Name Freq PRN Reason Stop Dose Admin Ringer's Solution 1,000 mls @ 80 mls/hr 06/22/25 06:00 06/22/25 09:30 IV 07/19/25 23:59 80 mls/hr INFUSION EVE Administration Sodium Chloride 0 ml 06/22/25 06:00 Normal Saline Flush 10 Ml Syr IV 07/19/25 23:59 PRN PRN Sodium Chloride 0 ml 06/22/25 06:00 Normal Saline 10 Ml Vial IJ 07/19/25 23:59 DIRECTED PRN Sterile Water 0 ml 06/22/25 06:00 Water,Injection,Sterile 10 Ml Vial IJ 07/19/25 23:59 DIRECTED PRN PFSH Active Problems Active Problems: Problem Status Onset Code Retinal vein occlusion Acute H34.8192 Macular degeneration Acute H35.30 Osteoarthritis of right hip Acute M16.11 Anxiety disorder Acute F41.9 COVID-19 Acute U07.1 Erectile dysfunction Acute N52.9 Cervicalgia Acute M54.2 Medical History Medical History Low back pain Benign paroxysmal positional vertigo PTSD (post-traumatic stress disorder) Somatoform disorder History of ETOH abuse Asthma Generalized anxiety disorder Herpes zoster GERD (gastroesophageal reflux disease) Allergic rhinitis Hemangioma Headache Pseudoseizures Skin tag Right rotator cuff tear Elevated blood pressure reading Meniscus, medial, derangement Shoulder impingement syndrome Tremor Surgical History Surgical History History of esophagogastroduodenoscopy (EGD) (~2014) Hx of vasectomy History of colonoscopy (~2014) History of laryngoscopy bx done H/O arthroscopy of right knee H/O arthroscopy of left knee Tobacco Smoking/Tobacco Use Status: Former Tobacco Use Alcohol Alcohol Intake: former Substance Use Substance use: Never Substance use type: does not use Vital Signs and Lab Results Vital Signs Most Recent Vital Signs in EMR: Most Recent Vital Signs Temp Pulse Resp BP Pulse Ox 36.4 C L 84 16 132/100 H 97 06/22/25 09:15 06/22/25 09:15 06/22/25 09:15 06/22/25 09:15 06/22/25 09:15 Imaging and Studies Imaging and Studies Study information below may be from another EMR and interpreted by another provider. Please see original notes in EMR for more complete details. EKG Summary: 08/29/24: Exam: Resting ECG Reason for Exam: chest pain Patient Location: E HR:82 bpm ECG Measurements Heart Rate 82 AXIS ID 162 P 10 QRSd 87 QRS 8 QT 390 T72 QTc 456 Conclusion Sinus rhythm...normal P axis, V-rate 60- 99 I have reviewed and I agree with the emergency room physician's ECG interpretation. Anesthesia Assessment and Plan Anesthesia History Personal History: No History of Anesthesia Complications Family History: Family History Unknown Exercise Tolerance Exercise Tolerance: Metabolic Equivalents>4 Pertinent Negatives Pertinent Negatives: No Major Cardiovascular Symptoms or Complaints, No Major Pulmonary Symptoms or Complaints and Other (Reports no GERD symptoms today) Cardiac & Pulmonary Exam Cardiac Exam: Normal S1/S2 Heart Sounds Pulmonary Exam: Clear Bilateral Breath Sounds Implantable Cardiac Device Does patient have a Pacemaker or an ICD?: No Airway Exam Known Difficult Airway: No Mallampati Class: 1 Mouth Opening: Normal (> 3cm) Thyromental Distance: Greater than 3 cm Neck Range of Motion: Full ROM Neck Circumference: Normal Teeth Condition: Normal Dentition ASA Classification ASA Score: ASA 2 Emergency Case?: No NPO Status NPO Status: NPO Clears >2 hours, Solids >8 hours Anesthesia Plan Resuscitation Status: Full Code Anesthesia Technique: General Anesthesia Airway Planned: Natural Airway Monitors Used: Standard Monitors
[2025-06-22 10:11] VITALS: BMI 34.9
[2025-06-22 10:44] VITALS: BP 114/91; PULSE 85; RESP 18; TEMP 36.4; O2SAT 93
[2025-06-22 10:49] VITALS: BP 141/95; PULSE 85; RESP 22; O2SAT 93
--- NOTE | 2025-06-22 10:53 | W.COLOREPORT ---
Date of service: 06/22/25 Time of Service: 10:53 Colonoscopy Report Procedure Description: PROCEDURES PERFORMED: 1. Colonoscopy PREOPERATIVE DIAGNOSIS: Surveillance colonoscopy POSTOPERATIVE DIAGNOSIS: Mild pandiverticulosis, grade 1 internal hemorrhoids SURGEON: Gino Irby MD INDICATION FOR PROCEDURE: the patient is a 60-year-old man due for surveillance colonoscopy. No symptoms. No family history of colon cancer. Prior colonoscopy normal. FINDINGS: Minimal/mild, scattered diverticular changes throughout the entire colon(majority on the left). No polyps. No inflammation. Mild grade 1 internal hemorrhoid disease. SURVEILLANCE interval/FOLLOW-UP: 10 years SPECIMENS: None EBL: Minimal COMPLICATIONS: None QUALITY of prep: Excellent Procedure in detail: The patient gave written consent and was in agreement with the indications, the potential risks as well as the benefits of the procedure. They were taken to the endoscopy suite and laid in the left lateral decubitus position. A timeout was performed and anesthesia was administered which was tolerated well. I started the procedure. Digital rectal and visual examination was performed and grossly within normal limits. A well-lubricated flexible colonoscope was then introduced and passed without any notable difficulty all the way to the cecum identified by the ileocecal valve and the appendiceal orifice. The scope was then slowly withdrawn with the above-noted findings. The patient tolerated the procedure well and was taken to the PACU in hemodynamically stable condition.
--- NOTE | 2025-06-22 10:54 | PDOC.DSDIS_ITS ---
Date of service: 06/22/25 Discharge Plan Disposition Patient Disposition: Home Condition: Good Discharge Details Attending Provider: Phil Irby Primary Care Provider: Elier Cox Home Meds and New Rx's Prescriptions: No Action bisacodyl [Dulcolax (bisacodyl)] 5 mg tablet,delayed release (DR/EC) 5 mg PO ONCE Qty: 4 0RF Rx Instructions: Take per colonoscopy instructions provided by ordering providers office polyethylene glycol 3350 17 gram/dose powder 17 g PO ONCE Qty: 238 0RF Rx Instructions: Take per colonoscopy instructions provided by ordering providers office Vabysmo 6 mg/0.05 mL solution intravitreal Q4W lorazepam 0.5 MG tablet 0.5 mg PO 1-2 hs,1q8h prn Qty: 90 0RF ibuprofen 600 mg tablet 600 mg PO TID PRN multivitamin Tablet 1 tab PO DAILY albuterol sulfate [Ventolin HFA] 8 GM HFA aerosol inhaler 2 puff Inhalation PRN PRN fluticasone propionate [Flovent HFA] 10.6 GM HFA aerosol inhaler 10.6 g Inhalation PRN Glucosamine Sulf-Chondroitin 1 EACH capsule 1 cap PO DAILY magnesium oxide 400 MG capsule 400 mg PO DAILY omeprazole 40 mg capsule,delayed release(DR/EC) 40 mg PO DAILY Patient Comments: TAKE ONE CAPSULE BY MOUTH EVERY DAY meclizine 25 mg tablet 25 mg PO BID PRNQty: 20 0RF Discharge Instructions Additional Instructions: FINDINGS: No polyps. No cancer. Nothing of concern. Incidentally, some mild diverticular disease and also mild hemorrhoid disease wa s encountered which are both extremely common, benign and nothing needs to be done about them. Stand Alone Forms: Portal Information Activity:: Activity as Tolerated Diet:: As Tolerated
[2025-06-22 11:34] VITALS: BP 135/90; PULSE 74; RESP 18; TEMP 36.6; O2SAT 95
--- NOTE | 2025-06-22 11:34 | W.ANESPOSTOP ---
Postoperative Evaluation Date, Time and Location Date Performed: 06/22/25 Time Performed: 11:29 Patient Location: Day Surgery Unit Vital Signs Most Recent Imported Vital Signs: Most Recent Vital Signs Temp Pulse Resp BP Pulse Ox 36.4 C L 84 16 132/100 H 97 06/22/25 09:15 06/22/25 09:15 06/22/25 09:15 06/22/25 09:15 06/22/25 09:15 Pain Score Most Recent Pain Score: Most Recent Pain Score Pain Level 1 06/22/25 09:15 Assessment Mental Status: Awake (Alert & Oriented to Patient Baseline) Airway and Respiratory Function: Patent airway with normal (patient baseline) respiratory exam Cardiovascular Function: Hemodynamically Stable Hydration Status: Adequately Hydrated Nausea & Vomiting: No Nausea or Vomiting Pain: Pt. Denies Any Pain Peripheral Nerve Block: Patient did not receive a nerve block Postoperative Comments:: No recurrent pseudoseizure activity noted. Patient reports he is at baseline.
== END 2025-06-22 11:45 | disposition home or self-care (01) ==
PROVIDERS: PCP Student in an Organized Health Care Education/Training Program; Visit Provider Student in an Organized Health Care Education/Training Program
PROC: 0DJD8ZZ Inspection of Lower Intestinal Tract, Via Natural or Artificial Opening Endoscopic (ICD-10-PCS; CPT 45378; principal; 2025-06-22 09:45)
DX: Z12.11 Encounter for screening for malignant neoplasm of colon (principal); K57.30 Diverticulosis of large intestine without perforation or abscess without bleeding; K64.0 First degree hemorrhoids
CPT/HCPCS: 45378; J2003; J2250; J2704